=== PATIENT | male | born 1975 | race Caucasian/White ===

== ENCOUNTER 2018-12-26 22:03 | Emergency (ER) | payer BC ==
[~2018-12-26] VITALS: Ht 170.2 cm; Wt 81.6 kg
[2018-12-26 22:32] VITALS: BP_SYST 113
--- NOTE | 2018-12-26 22:48 | NUR ---
CALLED PT NAME IN THE WAITING ROOM TO BE PLACE IN ER BED,PT NOT IN THE WAITING ROOM.
--- NOTE | 2018-12-26 22:55 | NUR ---
CALLED PT NAME IN THE WAITING ROOM TO BE PLACE IN ER BED,PT NOT IN THE WAITING ROOM.
--- NOTE | 2018-12-26 23:10 | NUR ---
CALLED PT NAME IN THE WAITING ROOM TO BE PLACE IN ER BED,PT NOT IN THE WAITING ROOM.
--- NOTE | 2018-12-26 23:31 | NUR ---
Per ham clerk, pt lwbs.
== END 2018-12-26 23:31 | disposition left against medical advice (07) ==
LOC: SED 22:03
DX: S40.861A Insect bite (nonvenomous) of right upper arm, initial encounter (principal); Z53.21 Procedure and treatment not carried out due to patient leaving prior to being seen by health care provider; W57.XXXA Bitten or stung by nonvenomous insect and other nonvenomous arthropods, initial encounter; Y93.89 Activity, other specified; Y92.89 Other specified places as the place of occurrence of the external cause; Y99.8 Other external cause status

== ENCOUNTER 2019-09-27 13:48 | Emergency (ER) | payer BC ==
[~2019-09-27] VITALS: Ht 175.3 cm; Wt 81.6 kg
[2019-09-27 13:48] VITALS: BP_SYST 107
[2019-09-27] MEDS: LEVOFLOXACIN 500 MG TABLET PO ONE (14:55)
[2019-09-27] MEDS: KETOROLAC TROMETHAMINE 60 MG/2 ML VIAL IM ONE (14:56)
[2019-09-27] MEDS: DIPH-TET-PERTUS Vaccine 0.5 ML VIAL (ADACEL) I.M. ONE (15:00)
[2019-09-27 15:12] VITALS: BP_SYST 112
== END 2019-09-27 15:10 | disposition home or self-care (01) ==
LOC: SED 13:48
DX: S39.012A Strain of muscle, fascia and tendon of lower back, initial encounter (principal); S91.331A Puncture wound without foreign body, right foot, initial encounter; G40.909 Epilepsy, unspecified, not intractable, without status epilepticus; F17.210 Nicotine dependence, cigarettes, uncomplicated; Z71.6 Tobacco abuse counseling; W22.8XXA Striking against or struck by other objects, initial encounter; Y93.89 Activity, other specified; Y92.89 Other specified places as the place of occurrence of the external cause; Y99.8 Other external cause status
CPT/HCPCS: 90471; 90715; 96372; 99284; J1885

== ENCOUNTER 2020-11-26 00:45 | Emergency (ER) | payer BC ==
[~2020-11-26] VITALS: Ht 175.3 cm; Wt 81.6 kg
[2020-11-26 00:49] VITALS: BP_SYST 113
[2020-11-26] MEDS ORDERED: PHENYTOIN 100 MG CAPSULE ONE ×2 (01:27→01:30)
[2020-11-26] MEDS ORDERED: PHENYTOIN 100 MG CAPSULE PO ONE (01:30)
[2020-11-26 02:00] VITALS: BP_SYST 113
== END 2020-11-26 02:00 ==
LOC: SED 00:45
DX: Z02.89 Encounter for other administrative examinations (principal)
CPT/HCPCS: 99283

== ENCOUNTER 2021-11-25 07:24 | Emergency (ER) | payer BC ==
[~2021-11-25] VITALS: Ht 175.3 cm; Wt 77.1 kg
[~2021-11-25 07:24] MED LIST: CEPH-548 PO
[2021-11-25 07:28] VITALS: BP_SYST 133
--- NOTE | 2021-11-25 07:38 | NUR ---
Placed in room 8 . Placed on faculty administrator, blood pressure machine and pulse oximeter. To gown for exam. Side rails up. Report given to CORY DUNHAM.
--- NOTE | 2021-11-25 07:40 | NUR ---
ER Dr. Forrester at bedside examining patient.
--- NOTE | 2021-11-25 07:44 | NUR ---
PT CAME TO ER STATING HE FINISHED HIS ABX (CEPHALEXIN) FOR RIGHT ARM RASH, SWELLING AND PAIN, HOWEVER HE IS STILL HAVING PAIN TO RIGHT UPPER ARM. NO RASH/REDNESS NOTED UPON ARRIVAL. PT IS AMBULATORY, AAOX, VSS
--- NOTE | 2021-11-25 07:55 | NUR ---
FIRST CONTACT WITH PT. PT HERE FOR EVAL OF CELLULITIS R UPPER ARM. PT WAS PRESCRIBED KEFLEX ABOUT A WEEK AGO, 1 PILL LEFT. SYMPTOMS HAVE IMPROVED BUT PT STATES HE STARTED HAVING PAIN AGAIN TO AREA. NO ERYTHEMA OR SWELLING NOTED, NON TENDER. WILL CONT TO MONITOR
--- NOTE | 2021-11-25 08:03 | NUR ---
BREAKFAST TRAY ORDERED FOR PT
[2021-11-25 08:51] VITALS: BP_SYST 135
--- NOTE | 2021-11-25 08:54 | NUR ---
DC INSTRUCTIONS GIVEN TO PT AND DISCUSSED. QUESTIONS ANSWERED. VSS. RESP EVEN AND UNLABORED. NO DISTRESS NOTED. AMBULATORY WITH STEADY GAIT AND STABLE FOR DC
[2021-11-26] MEDS ORDERED: CLOT15CR5 TP (09:51)
[2021-11-26] MEDS ORDERED: IBUP-1969 PO (09:51)
== END 2021-11-25 08:54 | disposition home or self-care (01) ==
LOC: SED 07:24
DX: L53.8 Other specified erythematous conditions (principal); Z48.00 Encounter for change or removal of nonsurgical wound dressing; Z59.00 Homelessness unspecified
CPT/HCPCS: 99281

== ENCOUNTER 2021-11-26 08:24 | Emergency (ER) | payer BC ==
[~2021-11-26] VITALS: Ht 175.3 cm; Wt 85.3 kg
[2021-11-26 09:10] VITALS: BP_SYST 114
--- NOTE | 2021-11-26 09:16 | NUR ---
Pt triaged and placed in waiting room, pending MD evaluation.
--- NOTE | 2021-11-26 09:20 | NUR ---
Pt here ambulatory, walking with steady gait. Pt alert and oriented x 3, but hyperverbal and flight of ideas upon face to face assessment. Pt could hardly enunciate why he came in today, but reported vague vinicio foot pain. Unable to give me a number on pain scale. Pending MD rosa.
--- NOTE | 2021-11-26 09:40 | NUR ---
ER Dr. Trotter to waiting room to examine patient.
[2021-11-26] MEDS ORDERED: IBUP-1969 PO (09:51)
[2021-11-26] MEDS ORDERED: CLOT15CR5 TP (09:51)
--- NOTE | 2021-11-26 10:05 | NUR ---
Patient given written and verbal discharge instructions and verbalizes understanding. ER MD discussed with patient the results and treatment provided. Patient in stable condition. ID arm band removed. Rx of Lotrisone and Ibuprofen given. Patient educated on pain management and to follow up with PMD. Opportunity for questions provided and answered. Medication side effect fact sheet provided.
--- NOTE | 2021-11-26 10:05 | NUR ---
VIDEOGAME TESTER ELECTRONIC CONSOLE DISPLAY OPERATOR Flower received a call from ED regarding patient needing resources ELECTRONIC CONSOLE DISPLAY OPERATOR met with patient in ED lobby as he has been discharged at this time. ELECTRONIC CONSOLE DISPLAY OPERATOR completed introductions, provided business card, provided Homeless Resource Packet and inquired into this his needs. Patient shared he was released on 11/10/2021 from [facility] after serving 1 year. He also shared he had "lots of medical issues and is retarded i guess". Patient was observed to be anxious and overwhelmed, ELECTRONIC CONSOLE DISPLAY OPERATOR utilized reflective listening and grounding exercises with patient to allow him time to process and verbalize his needs. Patient shared he was awaiting housing services and will meet with them Monday, he shares he is living in an encampment by the [facility] and states he feels safe. ELECTRONIC CONSOLE DISPLAY OPERATOR obtained numbers for the following persons: JESSICA Lydia Yarbrough cell: work: (left message) Caesar Jaimes-brother (left VM) Angelique- Aunt (unable to leave ) ELECTRONIC CONSOLE DISPLAY OPERATOR provided update to patient and provided additional resources for recently incarcerated individuals. ELECTRONIC CONSOLE DISPLAY OPERATOR encouraged patient to continue reaching out to PO and family for support. Patient stated he wanted to return to his encampment and stated he felt safe.
== END 2021-11-26 10:05 | disposition home or self-care (01) ==
LOC: SED 08:24
DX: B35.3 Tinea pedis (principal); M54.50 Low back pain, unspecified
CPT/HCPCS: 99283

== ENCOUNTER 2021-11-26 11:52 | Emergency (ER) | payer BC ==
[~2021-11-26 11:52] MED LIST changes: +CLOT15CR5 TP; +IBUP-1969 PO
[2021-11-26 12:28] VITALS: BP_SYST 127
--- NOTE | 2021-11-26 12:28 | NUR ---
Pt triaged in placed in waiting room pending MD evaluation.
--- NOTE | 2021-11-26 12:30 | NUR ---
Pt here, was seen 2 hrs ago for different problem. Came back reporting R side pain 03/28. Alert and oriented. Ambulating with steady gait. Was seen by and provided resources for per SW earlier this AM. Pending MD rosa.
--- NOTE | 2021-11-26 12:37 | NUR ---
Dr Trotter to waiting room area to evaluate patient.
--- NOTE | 2021-11-26 12:41 | NUR ---
Patient to ER bed H1 for evaluation. Side rails up. Report given to Nikole RAY.
[2021-11-26] MEDS ORDERED: KETOROLAC TROMETHAMINE 60 MG/2 ML VIAL IM ONE (12:45)
--- NOTE | 2021-11-26 13:00 | NUR ---
Patient given written and verbal discharge instructions and verbalizes understanding. ER Dr. Sergo SINGH discussed with patient the results and treatment provided. Patient in stable condition. ID arm band removed. Patient educated on pain management and to follow up with PMD. Pain Scale 10/10. Opportunity for questions provided and answered. Medication side effect fact sheet provided.
== END 2021-11-26 13:00 | disposition home or self-care (01) ==
LOC: SED 11:52
DX: M54.50 Low back pain, unspecified (principal)
CPT/HCPCS: 96372; 99283; J1885

== ENCOUNTER 2022-01-09 10:43 | Emergency (ER) | payer BC ==
[~2022-01-09] VITALS: Ht 175.3 cm; Wt 81.6 kg
[2022-01-09 11:11] VITALS: BP_SYST 142
[2022-01-09] MEDS ORDERED: CEPH-548 PO ×2 (11:30→11:51)
[2022-01-09] MEDS ORDERED: SULF1TAB48 PO ×2 (11:31→11:51)
[2022-01-09 11:35] VITALS: BP_SYST 127
== END 2022-01-09 11:33 | disposition home or self-care (01) ==
LOC: SED 10:43
DX: L03.116 Cellulitis of left lower limb (principal)
CPT/HCPCS: 99283

== ENCOUNTER 2022-01-13 11:28 | Emergency (ER) | payer BC ==
[~2022-01-13] VITALS: Ht 175.3 cm; Wt 81.6 kg
[~2022-01-13 11:28] MED LIST changes: +SULF1TAB48 PO
[2022-01-13 11:36] VITALS: BP_SYST 126
--- NOTE | 2022-01-13 11:43 | NUR ---
Triaged pt and placed in waiting room until bed becomes available. Pt c/o bilateral hand wounds. rates pain 08/26. Pt was here 3 days ago for the same reason and was diagnosed with MRSA. Pt currently taking antibiotics for wound (Sulfa and Cephalexin). A&Ox4. NKA. No known medical conditions. VSS.
--- NOTE | 2022-01-13 12:25 | NUR ---
Went to look for pt but pt is no where to be found. Checked in lobby, waiting area, bathroom, and outside parking lot but pt still not found.
--- NOTE | 2022-01-13 12:30 | NUR ---
Patient left without being seen.
== END 2022-01-13 12:30 | disposition left against medical advice (07) ==
LOC: SED 11:28
DX: S61.402D Unspecified open wound of left hand, subsequent encounter (principal); S61.401D Unspecified open wound of right hand, subsequent encounter; Z48.00 Encounter for change or removal of nonsurgical wound dressing; Z53.21 Procedure and treatment not carried out due to patient leaving prior to being seen by health care provider; X58.XXXD Exposure to other specified factors, subsequent encounter; Y93.89 Activity, other specified; Y92.89 Other specified places as the place of occurrence of the external cause; Y99.8 Other external cause status

== ENCOUNTER 2022-03-03 14:25 | Emergency (ER) | payer BC ==
[~2022-03-03] VITALS: Ht 175.3 cm; Wt 81.6 kg
[2022-03-03 14:44] VITALS: BP_SYST 132
--- NOTE | 2022-03-03 15:01 | NUR ---
Patient to ER bed 06 to gown for evaluation. Side rails up. Report given to Angel RAY .
--- NOTE | 2022-03-03 15:10 | NUR ---
MD DEJESUS AT BEDSIDE FOR MSE
[2022-03-03] MEDS ORDERED: VANCOMYCIN HCL 1,000 MG in NS 250 ML IV ONE (15:15)
[2022-03-03] MEDS ORDERED: VANCOMYCIN HCL 1000 MG/VIAL IV ONE (15:25)
[2022-03-03] MEDS ORDERED: SULF1TAB48 PO (17:43)
[2022-03-03] MEDS ORDERED: CEPH-548 PO (17:43)
[2022-03-03 17:48] VITALS: BP_SYST 131
--- NOTE | 2022-03-03 17:48 | NUR ---
Patient given written and verbal discharge instructions and verbalizes understanding. ER MD discussed with patient the results and treatment provided. Patient in stable condition. ID arm band removed. IV catheter removed intact and dressing applied, no active bleeding. Rx of KEFLEX given. Patient educated on pain management and to follow up with PMD. Pain Scale 1/10. Opportunity for questions provided and answered. Medication side effect fact sheet provided. All belongings returned by security including pocket knife.
== END 2022-03-03 19:11 | disposition home or self-care (01) ==
LOC: SED 14:25
DX: N63.31 Unspecified lump in axillary tail of the right breast (principal); F15.20 Other stimulant dependence, uncomplicated; Z79.899 Other long term (current) drug therapy
CPT/HCPCS: 99284; 96365; 96366; 87040; 36415; J3370; J7050

== ENCOUNTER 2022-03-24 13:36 | Emergency (ER) | payer BC ==
[~2022-03-24] VITALS: Ht 167.6 cm; Wt 59.0 kg
[2022-03-24 14:08] VITALS: BP_SYST 124
--- NOTE | 2022-03-24 14:33 | NUR ---
RECEIVED PT FROM CORY YING. PT BIBS FOR C/O SWELLING ON RIGHT LOWER LEG WITH SMALL PUSTUAL NOTED, SKIN INTACT. PT STATES HE HAD RING WORM IN THE PAST AND BELIEVES HE HAS A NEW SIGNS OF RING WORM ON HIS RIGHT LOWER ABDOMEN, SMALL PATCHES OF REDNESS NOTED. PT IS AAOX4. ON R/A. DENIES N/V. STATES LEG PAIN IS 6/10. SIDERAILS UP X2.
--- NOTE | 2022-03-24 15:05 | NUR ---
DR. SOUSA AT BEDSIDE TO ASSESS PT.
[2022-03-24] MEDS ORDERED: SULF1TAB48 PO (15:25)
--- NOTE | 2022-03-24 15:38 | NUR ---
Patient given written and verbal discharge instructions and verbalizes understanding. ER MD discussed with patient the results and treatment provided. Patient in stable condition. ID arm band removed. IV catheter removed intact and dressing applied, no active bleeding. Rx of BACTRIM DS given. Patient educated on pain management and to follow up with PMD. Pain Scale 5/10. Opportunity for questions provided and answered. Medication side effect fact sheet provided.
[2022-03-24 15:40] VITALS: BP_SYST 124
== END 2022-03-24 15:38 | disposition home or self-care (01) ==
LOC: SED 13:36
DX: L02.415 Cutaneous abscess of right lower limb (principal); R22.41 Localized swelling, mass and lump, right lower limb; B95.62 Methicillin resistant Staphylococcus aureus infection as the cause of diseases classified elsewhere; Z79.899 Other long term (current) drug therapy
CPT/HCPCS: 99283

== ENCOUNTER 2022-08-01 12:03 | Emergency (ER) | payer BC ==
[~2022-08-01] VITALS: Ht 175.3 cm; Wt 81.6 kg
[2022-08-01 13:09] VITALS: BP_SYST 144
[2022-08-01 15:33] LABS: BASOPHILS # (AUTO) 0.1 K/uL (0.0-0.2); BASOPHILS % (AUTO) 0.7 % (0.0-2.0); EOSINOPHILS # (AUTO) 0.1 K/uL (0.0-0.4); EOSINOPHILS % (AUTO) 1.4 % (0.0-4.0); HEMATOCRIT 39.3 % (36-54); HEMOGLOBIN 13.7 g/dL (14.0-18.0); LYMPHOCYTES # (AUTO) 3.1 K/uL (1.0-5.5); LYMPHOCYTES % (AUTO) 37.2 % (20.5-51.5); MEAN CORPUSCULAR HEMOGLOBIN 33 pg (27-31); MEAN CORPUSCULAR HGB CONC 35 % (32-36); MEAN CORPUSCULAR VOLUME 94 fL (79.0-98.0); MONOCYTES # (AUTO) 0.6 K/uL (0.0-1.0); MONOCYTES % (AUTO) 6.9 % (1.7-9.3); NEUTROPHILS # (AUTO) 4.5 K/uL (1.8-7.7); NEUTROPHILS % (AUTO) 53.8 % (40.0-70.0); PLATELET COUNT (AUTO) 253 K/uL (130-430); RED BLOOD CELL COUNT(AUTO) 4.19 MIL/uL (4.2-6.2); WHITE BLOOD COUNT (AUTO) 8.5 K/uL (4.8-10.8)
[2022-08-01 16:13] LABS: ANION GAP 8 (5-15); CALCIUM 8.6 mg/dL (8.4-11.0); CHLORIDE 105 mmol/L (98-107); CREATININE 0.73 mg/dL (0.55-1.30); GLUCOSE 88 mg/dL (70-99); UREA NITROGEN, BLOOD 16 mg/dL (8-21)
[2022-08-01 16:14] LABS: GFR AFRICAN AMERICAN 148 mL/min (>90)
[2022-08-01 16:18] LABS: ALANINE AMINOTRANSFERASE 24 U/L (12-78); ALBUMIN 3.5 g/dL (3.4-4.8); ASPARTATE AMINOTRANSFERASE 18 U/L (10-37); TOTAL BILIRUBIN 0.2 mg/dL (0.0-1.0)
[2022-08-01 16:23] LABS: C-REACTIVE PROTEIN QUANT < 0.2 mg/dL (0-0.5)
[2022-08-01] MEDS ORDERED: PENI250T2 PO (17:30)
[2022-08-01] MEDS ORDERED: IBUP-1971 PO (17:30)
--- NOTE | 2022-08-01 17:38 | NUR ---
Patient given written and verbal discharge instructions and verbalizes understanding. ER MD discussed with patient the results and treatment provided. Patient in stable condition. ID arm band removed. IV catheter removed intact and dressing applied, no active bleeding. Rx of penicilin/motrin given. Patient educated on pain management and to follow up with PMD. Pain Scale 1. Opportunity for questions provided and answered. Medication side effect fact sheet provided.
== END 2022-08-01 17:37 | disposition home or self-care (01) ==
LOC: SED 12:03
DX: J02.9 Acute pharyngitis, unspecified (principal); R05.9 Cough, unspecified; R09.81 Nasal congestion; Z79.899 Other long term (current) drug therapy
CPT/HCPCS: 36415; 70360-TC; 80053; 83605; 85025; 86140; 99284

== ENCOUNTER 2022-08-27 19:59 | Emergency (ER) | payer BC ==
[~2022-08-27] VITALS: Ht 175.3 cm; Wt 81.6 kg
[~2022-08-27 19:59] MED LIST changes: +IBUP-1971 PO; +PENI250T2 PO
[2022-08-27 20:17] VITALS: BP_SYST 117
== END 2022-08-28 00:09 | disposition left against medical advice (07) ==
LOC: SED 19:59
DX: M25.512 Pain in left shoulder (principal); Z53.21 Procedure and treatment not carried out due to patient leaving prior to being seen by health care provider
CPT/HCPCS: 99281

== ENCOUNTER 2022-09-12 19:00 | Emergency (ER) | payer BC ==
[~2022-09-12] VITALS: Ht 170.2 cm; Wt 81.6 kg
[2022-09-12 20:04] VITALS: BP_SYST 116
[2022-09-12] MEDS ORDERED: IBUP-1969 PO (22:50)
[2022-09-12] MEDS ORDERED: DIPHTH,PERTUSS(ACELL),TET VAC 0.5 ML VIAL (Tdap) I.M. ONE (23:00)
[2022-09-12] MEDS ORDERED: BACITRACIN 1 GM OINT TP ONE (23:00)
[2022-09-12] MEDS ORDERED: IBUPROFEN 600 MG TABLET PO ONE (23:15)
[2022-09-12 23:30] VITALS: BP_SYST 118
== END 2022-09-12 23:30 | disposition home or self-care (01) ==
LOC: SED 19:00
DX: S63.501A Unspecified sprain of right wrist, initial encounter (principal); S80.211A Abrasion, right knee, initial encounter; Z79.899 Other long term (current) drug therapy; V18.0XXA Pedal cycle driver injured in noncollision transport accident in nontraffic accident, initial encounter; Y93.89 Activity, other specified; Y92.89 Other specified places as the place of occurrence of the external cause; Y99.8 Other external cause status
CPT/HCPCS: 99283

== ENCOUNTER 2023-07-28 19:07 | Emergency (ER) | payer BC ==
[~2023-07-28] VITALS: Ht 175.3 cm; Wt 81.6 kg
[2023-07-28 19:32] VITALS: BP_SYST 112; PULSE 111; RESP 16; TEMP 98.3; O2SAT 93
[2023-07-28] MEDS ORDERED: IBUP-1969 PO (19:48)
== END 2023-07-28 19:58 | disposition home or self-care (01) ==
LOC: MERGE 19:07 → SED 19:07
DX: M79.10 Myalgia, unspecified site (principal); N50.811 Right testicular pain; R10.31 Right lower quadrant pain; Z79.899 Other long term (current) drug therapy
CPT/HCPCS: 99281

== ENCOUNTER 2023-11-30 16:08 | Emergency (ER) | payer BC ==
[~2023-11-30] VITALS: Ht 175.3 cm; Wt 81.6 kg
[2023-11-30 16:30] VITALS: BP_SYST 128; PULSE 83; RESP 19; TEMP 97.9; O2SAT 97
[2023-11-30] MEDS ORDERED: TETRACAINE HCL/PF 0.5% OPHTHALMIC DROPS 4 ML OP ONE (16:45)
== END 2023-11-30 18:47 | disposition left against medical advice (07) ==
LOC: SED 16:08
DX: H57.89 Other specified disorders of eye and adnexa (principal); Z53.21 Procedure and treatment not carried out due to patient leaving prior to being seen by health care provider